=== PATIENT | female | born 2000 | race Caucasian/White ===

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

== ENCOUNTER 2022-10-21 21:04 | Emergency (ER) | payer MEDICAID ==
[~2022-10-21] VITALS: Ht 157.5 cm; Wt 61.2 kg
[2022-10-21 21:20] VITALS: BP 129/74; PULSE 97; RESP 20; TEMP 98.1; O2SAT 98
--- NOTE | 2022-10-21 21:27 | NUR ---
PT WENT TO REST ROOM
--- NOTE | 2022-10-21 21:30 | NUR ---
FAMILY AT THE BEDSIDE
--- NOTE | 2022-10-21 21:35 | NUR ---
PT TAKEN TO ER BED 9
--- NOTE | 2022-10-21 21:41 | NUR ---
UA COLLECTED AND SENT TO LAB
[2022-10-21 22:04] LABS: BASOPHILS % (AUTO) 0.5 % (0.0-2.0); EOSINOPHILS # (AUTO) 0.2 K/uL (0-0.4); EOSINOPHILS % (AUTO) 2.1 % (0.0-4.0); HEMATOCRIT 37.2 % (36-48); HEMOGLOBIN 12.4 g/dL (12.0-16.0); LYMPHOCYTES # (AUTO) 1.9 K/uL (2.5-16.5); LYMPHOCYTES % (AUTO) 22.3 % (20.5-51.1); MEAN CORPUSCULAR HEMOGLOBIN 27 pg (27-31); MEAN CORPUSCULAR HGB CONC 34 g/dL (33-37); MEAN CORPUSCULAR VOLUME 80.9 fL (80-94); MONOCYTES # (AUTO) 0.9 K/uL (0.8-1.0); MONOCYTES % (AUTO) 11.1 % (1.7-9.3); NEUTROPHILS # (AUTO) 5.5 K/uL (1.8-7.7); PLATELET COUNT (AUTO) 347 K/uL (140-450); RED BLOOD CELL COUNT(AUTO) 4.59 MIL/uL (4.20-5.40); RED CELL DISTRIBUTION WIDTH 14.7 % (11.6-13.7); WHITE BLOOD COUNT (AUTO) 8.5 K/uL (4.8-10.8)
--- NOTE | 2022-10-21 22:05 | NUR ---
ultrasound at bedside
[2022-10-21 22:10] LABS: APPEARANCE,URINE CLEAR (CLEAR); BILIRUBIN,URINE NEGATIVE (NEGATIVE); BLOOD, URINE 2+ (NEGATIVE); COLOR,URINE YELLOW (YELLOW); LEUKOCYTE ESTERASE ,URINE NEGATIVE (NEGATIVE); NITRITE, URINE NEGATIVE (NEGATIVE); UGLUCOSE TRACE (NEGATIVE)
[2022-10-21 22:28] LABS: RBC,URINE 11-20 (MOD) /HPF (0-5)
[2022-10-21 22:29] LABS: TRICHOMONAS,URINE None Seen /HPF (None Seen); YEAST,URINE None Seen /HPF (None Seen)
[2022-10-21 23:00] VITALS: TEMP 98.1
--- NOTE | 2022-10-21 23:00 | NUR ---
Patient is a 22/F who came in due to 3 hours history of vaginal bleeding and suprapubic pain, 8/10, cramping. No fever/cough/colds, nausea/vomiting/diarrhea noted. PMHx: Denies NKA
[2022-10-21] MEDS ORDERED: ACET-10509 PO (23:52)
[2022-10-21] MEDS ORDERED: NITR100C7 PO (23:53)
--- NOTE | 2022-10-22 | NUR ---
Patient discharged with v/s stable. Written and verbal after care instructions given and explained. Patient alert, oriented and verbalized understanding of instructions. Ambulatory with steady gait. All questions addressed prior to discharge. ID band removed. Patient advised to follow up with PMD. Rx of Tylenol and Macrobid given. Patient educated on indication of medication including possible reaction and side effects. Opportunity to ask questions provided and answered.
[2022-10-22 00:09] VITALS: BP 113/71; PULSE 82; RESP 18; O2SAT 98
== END 2022-10-22 | disposition home or self-care (01) ==
LOC: MED 21:04
DX: O20.0 Threatened abortion (principal); O23.41 Unspecified infection of urinary tract in pregnancy, first trimester; Z3A.01 Less than 8 weeks gestation of pregnancy
CPT/HCPCS: 36415; 76817; 81001; 81025; 84702; 85025; 86900; 86901; 87086; 99284; Q0092